=== PATIENT | male | born 1995 | race Caucasian/White ===

== ENCOUNTER 2024-07-14 17:50 | Inpatient (IN) | payer OTHER ==
[~2024-07-14] VITALS: Ht 170.2 cm; Wt 98.0 kg
[2024-07-14] MEDS ORDERED: METHOCARBAMOL 500 MG TABLET PO PRN (21:45)
[2024-07-14] MEDS ORDERED: ONDANSETRON 4 MG TABLET PO PRN (21:45)
[2024-07-14] MEDS: ETHYL ALCOHOL 62% ANTISEPTIC NASAL SANITIZER 0.6 ML AMPUL NASAL SCH (23:34)
[2024-07-14] MEDS: ARIPiprazole 10 MG TABLET PO SCH (23:34)
[2024-07-14] MEDS: GABAPENTIN 300 MG CAPSULE PO SCH (23:35)
[2024-07-14] MEDS: SENNOSIDES 8.6 MG TABLET PO SCH (23:35)
[2024-07-14] MEDS: DOCUSATE SODIUM 100 MG CAPSULE PO SCH (23:35)
[2024-07-14] MEDS: METHOCARBAMOL 500 MG TABLET PO SCH (23:36)
[2024-07-14] MEDS: HEPARIN SODIUM,PORCINE 5,000 UNITS/ML VIAL SQ SCH (23:36)
[2024-07-14] MEDS: POLYETHYLENE GLYCOL 3350 17 GM PACKET PO SCH (23:38)
[2024-07-14] MEDS: ACETAMINOPHEN 325 MG TABLET PO SCH (23:39)
[2024-07-15 04:45] VITALS: BP 126/59; PULSE 102; RESP 18; TEMP 97.2; O2SAT 95
[2024-07-15 04:48] VITALS: O2SAT 95
[2024-07-15 07:24] LABS: BASOPHILS % (AUTO) 0.5 % (0.0-2.0); EOSINOPHILS % (AUTO) 1.6 % (1.0-6.0); HEMATOCRIT 39.3 % (41-53); HEMOGLOBIN 13.3 g/dL (13.5-17.5); LYMPHOCYTES # (AUTO) 1.6 K/uL (1.0-4.8); LYMPHOCYTES % (AUTO) 14.2 % (22.0-44.0); MEAN CORPUSCULAR HEMOGLOBIN 29.7 pg (26.0-34.0); MEAN CORPUSCULAR HGB CONC 33.8 G/dL (31.0-37.0); MEAN CORPUSCULAR VOLUME 88 fL (80-100); MONOCYTES # (AUTO) 0.7 K/uL (0.1-1.0); MONOCYTES % (AUTO) 6.6 % (2.0-9.0); NEUTROPHILS # (AUTO) 8.5 K/uL (1.8-7.7); NEUTROPHILS % (AUTO) 77.1 % (40.0-70.0); PLATELET COUNT (AUTO) 505 K/uL (150-450); RED BLOOD CELL COUNT(AUTO) 4.47 MIL/uL (4.50-5.90); RED CELL DISTRIBUTION WIDTH 16.1 % (11.5-14.5); WHITE BLOOD COUNT (AUTO) 11.1 K/uL (4.5-11.0)
[2024-07-15] MEDS: MULTIVITAMINS WITH MINERALS, THERAPEUTIC TABLET PO SCH (07:37)
[2024-07-15] MEDS: DULoxetine HCL 60 MG CAPSULE PO SCH (07:37)
[2024-07-15] MEDS: LIDOCAINE 5% TRANSDERMAL PATCH TD SCH ×3 (07:39→07:40)
[2024-07-15 08:00] VITALS: BP 115/73; PULSE 87; RESP 19; TEMP 97.9; O2SAT 98
[2024-07-15 08:05] LABS: ALANINE AMINOTRANSFERASE 50 U/L (12-78); ALKALINE PHOSPHATASE 165 U/L (46-116); ANION GAP 8 mmol/L (8-16); ASPARTATE AMINOTRANSFERASE 22 U/L (15-37); BILIRUBIN,TOTAL 0.5 mg/dL (0.1-1.0); CARBON DIOXIDE 30 mmol/L (22-29); CHLORIDE 96 mmol/L (98-107); CREATININE 0.79 mg/dL (0.60-1.30); GLOMERULAR FILTR. RATE CALC > 60 mL/min (>60); GLUCOSE,RANDOM 110 mg/dL (70-110); POTASSIUM 4.1 mmol/L (3.5-5.1); SODIUM SERUM 134 mmol/L (136-145); TOTAL PROTEIN, SERUM 7.1 g/dL (6.4-8.2); UREA NITROGEN, BLOOD 11 mg/dL (7-18)
[2024-07-15 20:15] VITALS: BP 122/70; PULSE 97; RESP 18; TEMP 98.3; O2SAT 96
[2024-07-15] MEDS: -LIDODERM PATCH NOTE- MISC SCH ×3 (20:23)
[2024-07-15 22:36] VITALS: O2SAT 96
[2024-07-16 08:00] VITALS: BP 117/66; PULSE 81; RESP 19; TEMP 97.8; O2SAT 96
[2024-07-16] MEDS: DOCUSATE SODIUM 250 MG CAPSULE PO SCH (08:37)
[2024-07-16 22:03] VITALS: BP 114/71; PULSE 90; RESP 18; TEMP 98; O2SAT 96
[2024-07-16 22:06] VITALS: O2SAT 96
[2024-07-17 08:05] VITALS: BP 118/64; PULSE 80; RESP 18; TEMP 98.4; O2SAT 98
[2024-07-17] MEDS: GABAPENTIN 300 MG CAPSULE PO SCH (08:31)
[2024-07-17] MEDS ORDERED: METHOCARBAMOL 500 MG TABLET PO PRN (13:45)
[2024-07-17 15:03] VITALS: O2SAT 98
[2024-07-17 20:00] VITALS: BP 117/70; PULSE 103; RESP 18; TEMP 98.4; O2SAT 95
[2024-07-18 08:00] VITALS: BP 123/65; PULSE 97; RESP 19; TEMP 98; O2SAT 99
[2024-07-18 20:00] VITALS: BP 113/70; PULSE 99; RESP 18; TEMP 98.1; O2SAT 95
[2024-07-19 08:00] VITALS: BP 109/71; PULSE 93; RESP 19; TEMP 98.1; O2SAT 96
[2024-07-19 08:30] VITALS: O2SAT 96
[2024-07-19 20:00] VITALS: BP 118/74; PULSE 103; RESP 18; TEMP 99; O2SAT 96
[2024-07-20 07:07] LABS: ANION GAP 5 mmol/L (8-16); CALCIUM, TOTAL 8.9 mg/dL (8.8-10.5); CARBON DIOXIDE 31 mmol/L (22-29); CHLORIDE 101 mmol/L (98-107); CREATININE 0.78 mg/dL (0.60-1.30); GLOMERULAR FILTR. RATE CALC > 60 mL/min (>60); GLUCOSE,RANDOM 97 mg/dL (70-110); POTASSIUM 4.1 mmol/L (3.5-5.1); SODIUM SERUM 137 mmol/L (136-145); UREA NITROGEN, BLOOD 12 mg/dL (7-18)
[2024-07-20 07:10] LABS: BASOPHILS % (AUTO) 0.8 % (0.0-2.0); EOSINOPHILS % (AUTO) 1.7 % (1.0-6.0); HEMATOCRIT 38.8 % (41-53); LYMPHOCYTES # (AUTO) 1.5 K/uL (1.0-4.8); MEAN CORPUSCULAR HEMOGLOBIN 29.4 pg (26.0-34.0); MEAN CORPUSCULAR HGB CONC 33.4 G/dL (31.0-37.0); MEAN CORPUSCULAR VOLUME 88 fL (80-100); MONOCYTES # (AUTO) 0.6 K/uL (0.1-1.0); NEUTROPHILS # (AUTO) 5.1 K/uL (1.8-7.7); NEUTROPHILS % (AUTO) 69.5 % (40.0-70.0); PLATELET COUNT (AUTO) 376 K/uL (150-450); RED CELL DISTRIBUTION WIDTH 15.4 % (11.5-14.5); WHITE BLOOD COUNT (AUTO) 7.3 K/uL (4.5-11.0)
[2024-07-20 08:00] VITALS: BP 132/77; PULSE 88; RESP 19; TEMP 98.1; O2SAT 96
[2024-07-20] MEDS: GABAPENTIN 300 MG CAPSULE PO SCH (08:30)
[2024-07-20] MEDS ORDERED: MULT-1303 PO (17:46)
[2024-07-20] MEDS ORDERED: DULO-113 PO (17:46)
[2024-07-20] MEDS ORDERED: ACET-2247 PO (17:46)
[2024-07-20] MEDS ORDERED: POLY17PO47 PO (17:46)
[2024-07-20] MEDS ORDERED: DOCU-412 PO (17:46)
[2024-07-20] MEDS ORDERED: ONDA-104 PO (17:46)
[2024-07-20] MEDS ORDERED: GABA-1181 PO (17:46)
[2024-07-20] MEDS ORDERED: SENN-376 PO (17:46)
[2024-07-20] MEDS ORDERED: LIDO700A15 TP (17:46)
[2024-07-20] MEDS ORDERED: METH-659 PO (17:46)
[2024-07-20] MEDS ORDERED: ARIP10TA38 PO (17:46)
[2024-07-20 20:00] VITALS: BP 108/55; PULSE 93; RESP 18; TEMP 98.1; O2SAT 97
[2024-07-21 07:40] VITALS: BP 116/66; PULSE 85; RESP 19; TEMP 98.4; O2SAT 95
[2024-07-21 09:00] VITALS: O2SAT 95
[2024-07-21] MEDS ORDERED: DOCU-412 PO (09:49)
[2024-07-21] MEDS ORDERED: DULO-113 PO (09:49)
[2024-07-21] MEDS ORDERED: LIDO700A30 TD (09:49)
[2024-07-21] MEDS ORDERED: SENN-374 PO (09:49)
[2024-07-21] MEDS ORDERED: GABA-1181 PO (09:49)
[2024-07-21] MEDS ORDERED: ARIP10TA38 PO (09:49)
[2024-07-21 20:00] VITALS: BP 150/69; PULSE 97; RESP 18; TEMP 97.6; O2SAT 96
[2024-07-22 08:00] VITALS: BP 108/55; PULSE 89; RESP 19; TEMP 98.2; O2SAT 95
== END 2024-07-22 13:05 | disposition home health service (06) | DRG 552 ==
LOC: 2WR 19:15
PROVIDERS: ADMIT Physical Medicine & Rehabilitation; ATTEND Physical Medicine & Rehabilitation
DX: M40.204 Unspecified kyphosis, thoracic region (principal); E87.1 Hypo-osmolality and hyponatremia; E46 Unspecified protein-calorie malnutrition; G95.20 Unspecified cord compression; Z74.09 Other reduced mobility; D72.829 Elevated white blood cell count, unspecified; D64.9 Anemia, unspecified; R53.81 Other malaise; R62.50 Unspecified lack of expected normal physiological development in childhood; I95.9 Hypotension, unspecified; R00.0 Tachycardia, unspecified; Z68.33 Body mass index [BMI] 33.0-33.9, adult; Z79.899 Other long term (current) drug therapy; Z88.5 Allergy status to narcotic agent; Z98.1 Arthrodesis status
CPT/HCPCS: 80048; 80053; 85025; 87081; 93970; 97110; 97112; 97116; 97163; 97167; 97530; 97535; 99366; J1644